=== PATIENT | male | born 2000 | race Caucasian/White ===

== ENCOUNTER 2022-06-19 18:30 | Emergency (ER) | payer SELFPAY ==
[~2022-06-19] VITALS: Ht 167.6 cm; Wt 69.0 kg
[2022-06-19 18:35] VITALS: BP 122/81
[2022-06-19] MEDS ORDERED: IBUP-2029 MT (20:11)
[2022-06-19] MEDS ORDERED: KETOROLAC 60MG/2ML VIAL IM ONE (20:15)
== END 2022-06-19 20:49 | disposition home or self-care (01) ==
LOC: ER 18:30
DX: M25.512 Pain in left shoulder (principal)
CPT/HCPCS: 73030; 96372; 99283; J1885